=== PATIENT | female | born 1990 | race Caucasian/White ===

== ENCOUNTER 2024-04-26 19:50 | Emergency (ER) | payer MEDICAID, OTHER ==
[~2024-04-26] VITALS: Ht 157.5 cm; Wt 54.0 kg
[2024-04-26 19:54] VITALS: TEMP 98.8; O2SAT 98
[2024-04-26 20:58] LABS: BASOPHILS % 0.3 % (0.0-2.0); EOSINOPHILS % 1.1 % (0.0-5.0); HEMATOCRIT. 40.2 % (36.0-48.0); HEMOGLOBIN. 13.9 g/dL (12.0-16.0); LYMPHOCYTES % 18.9 % (20.0-50.0); MEAN CORPUSCULAR HGB CONC 34.6 g/dL (31.0-37.0); MEAN CORPUSCULAR VOLUME 92.6 fL (81.0-99.0); MONOCYTES % 7.3 % (2.0-8.0); NEUTROPHILS % 72.4 % (40.0-76.0); PLATELET 214 x1000/uL (130-400); RED BLOOD CELL COUNT 4.34 mill/uL (4.2-5.4); WHITE BLOOD COUNT 8.9 x1000/uL (4.5-11.0)
[2024-04-26] MEDS: SODIUM CHLORIDE 0.9% 1,000 ML IV ONE (21:01)
[2024-04-26] MEDS: MORPHINE SULFATE 4 MG/ML INJ (FOR IV/IM USE) IV ONE (21:01)
[2024-04-26] MEDS: ONDANSETRON HCL 4MG/2ML INJ IV STA (21:01)
[2024-04-26 21:07] LABS: CHLORIDE 106 mEq/L (98-107); POTASSIUM 3.3 mEq/L (3.5-5.1); SODIUM 140 mEq/L (136-145)
[2024-04-26 21:08] LABS: CARBON DIOXIDE 26 mEq/L (21-32)
[2024-04-26 21:13] LABS: CREATININE 0.9 mg/dL (0.6-1.0)
[2024-04-26 21:14] LABS: GLUCOSE 108 mg/dL (70-105); UREA NITROGEN BLOOD 8 mg/dL (9-23)
[2024-04-26 21:15] LABS: TROPONIN I HIGH SENSITIVITY < 4 ng/L (3.0-34)
[2024-04-26 21:19] LABS: HCG SCREEN NEGATIVE
[2024-04-26 22:40] LABS: CLARITY URINE CLEAR (CLEAR); COLOR URINE YELLOW (YELLOW); GLUCOSE URINE NEGATIVE (NEGATIVE); KETONES URINE NEGATIVE (NEGATIVE); LEUKOCYTE ESTERASE URINE 1+ (NEGATIVE); NITRITE URINE NEGATIVE (NEGATIVE); OCCULT BLOOD URINE NEGATIVE (NEGATIVE); PH URINE 6.5 (4.5-8.0); PROTEIN URINE NEGATIVE (NEGATIVE); SPECIFIC GRAVITY URINE 1.009 (1.005-1.030)
[2024-04-26 23:30] LABS: BACTERIA URINE 2+; RBC URINE 0-2 /hpf (0-2)
[2024-04-26 23:31] LABS: SQUAMOUS EPITHELIAL CELL URINE 1+ /lpf (RARE/1+)
[2024-04-26] MEDS ORDERED: IOHEXOL-300 100 ML BOTTLE ONE (23:51)
[2024-04-27 00:02] LABS: TROPONIN I HIGH SENSITIVITY < 4 ng/L (3.0-34)
[2024-04-27] MEDS ORDERED: NAPR-677 MT (00:22)
[2024-04-27 00:24] VITALS: BP 116/71; PULSE 74; RESP 21
== END 2024-04-27 00:41 | disposition home or self-care (01) ==
LOC: ER 19:50
DX: S30.811A Abrasion of abdominal wall, initial encounter (principal); F19.90 Other psychoactive substance use, unspecified, uncomplicated; V98.8XXA Other specified transport accidents, initial encounter; Y93.89 Activity, other specified; Y92.89 Other specified places as the place of occurrence of the external cause; Y99.8 Other external cause status
CPT/HCPCS: 80048; 81003; 84703; 83690; 85025; 84484; 36415; 74177; 96361; 96374; 96375; 99285; Q9967; J2405; J2270; J7030; Z7610; 99284